=== PATIENT | female | born 1975 | race Two or more races ===

== ENCOUNTER 2023-03-25 07:39 | Day surgery (SDC) | payer MEDICAID ==
[~2023-03-25] VITALS: Ht 165.1 cm; Wt 64.9 kg
[~2023-03-25 07:39] MED LIST: BENA-19 PO; METO25TA5 PO
[2023-03-25] MEDS ORDERED: HEPARIN SODIUM (PORCINE) 5000 UNITS/ML 1ML VIAL ONE (09:04)
[2023-03-25] MEDS ORDERED: fentaNYL CITRATE 100 MCG/2 ML VL ONE (09:04)
[2023-03-25] MEDS ORDERED: VERAPAMIL 2.5MG/ML INJ 2ML VIAL IV ONE (09:04)
[2023-03-25] MEDS ORDERED: IODIXANOL 320MG/ML 100ML BTL IV ONE (09:05)
[2023-03-25] MEDS ORDERED: LIDOCAINE 2%HCL (LOCAL ANESTH.) INJ 20ML MDV ONE (09:05)
[2023-03-25] MEDS ORDERED: MIDAZOLAM HCL 2MG/2ML 2ml VIAL (1mg/ml) ONE (09:05)
== END 2023-03-25 11:19 | disposition home or self-care (01) ==
LOC: CATH 07:39
PROVIDERS: ATTEND Internal Medicine Cardiovascular Disease
DX: R94.39 Abnormal result of other cardiovascular function study (principal); I10 Essential (primary) hypertension; Z98.891 History of uterine scar from previous surgery; Z79.899 Other long term (current) drug therapy
CPT/HCPCS: 93458; C1725; C1894; J1644; J2250; J3010; Q9967; 99152